=== PATIENT | male | born 1950 | race Caucasian/White ===

== ENCOUNTER → 2020-07-05 15:13 | Outpatient (CLI) | payer OTHER, SELFPAY ==
[2020-07-05 15:53] LABS: International Normalized Ratio 1.7; Prothrombin Time (Protime)PT. 19.8 SECONDS (11.7-14.9)
== END ==
PROVIDERS: Referring Provider Student in an Organized Health Care Education/Training Program; Visit Provider Student in an Organized Health Care Education/Training Program
DX: I26.99 Other pulmonary embolism without acute cor pulmonale (principal)
CPT/HCPCS: 85610

== ENCOUNTER 2020-08-24 06:15 | Emergency (ER) | payer OTHER, SELFPAY ==
[2020-08-24 06:16] VITALS: BP 165/85; PULSE 98; RESP 18; TEMP 36.6; O2SAT 98; BMI 39.1
--- NOTE | 2020-08-24 06:20 | RAD_ITS ---
HISTORY: FALL ANTERIOR BRUISING TO LEFT KNEE ADDITIONAL HISTORY: None provided. EXAMINATION/TECHNIQUE: XR Knee Complete 4 Views or More Left Number of images including paperwork: 4 COMPARISON: None FINDINGS: BONES: No acute fracture. JOINTS: No subluxation. Moderate medial compartment degenerative changes. Joint bodies. SOFT TISSUES: No distinct foreign body. Soft tissue swelling anteriorly. Vascular calcifications. RAD/Knee 4 or More Views IMPRESSION: Degenerative changes without acute osseous abnormality. Anterior knee soft tissue swelling. at 0730 Reported and signed by: Irina Ritchie MD Electronically Signed: Irina Ritchie MD at 7:30 EDT Tel , Service support ,
--- NOTE | 2020-08-24 06:20 | CT_ITS ---
HISTORY: FALL ADDITIONAL HISTORY: None provided. COMPARISON: None EXAMINATION/TECHNIQUE: CT Head or Brain W/O Contrast Injection. Axial, coronal and sagittal images. Number of images including paperwork: 262. A radiation dose optimization technique was used for this scan. FINDINGS: BRAIN: No acute hemorrhage or mass. No definite acute infarct; MRI more sensitive. White matter hypodensity is nonspecific but most commonly seen with chronic ischemic changes. VENTRICULAR SYSTEM: No hydrocephalus. PARANASAL SINUSES AND MASTOIDS: No air-fluid level in the imaged extent. Mild mucosal thickening. Mucous retention cyst versus polyp partially visualized in the left maxillary sinus. ORBITS: Unremarkable imaged extent. SKELETON AND SOFT TISSUES: Calvarium intact. Right periorbital hematoma. ASPECTS score: Not applicable. CT/Brain/Head without Contrast IMPRESSION: No acute intracranial abnormality. Chronic ischemic changes. Individualized dose optimization techniques were used for this CT. at 0703 Reported and signed by: Irina Ritchie MD Electronically Signed: Irina Rithcie MD at 7:03 EDT Tel , Service support ,
--- NOTE | 2020-08-24 06:20 | CT_ITS ---
HISTORY: FALL ADDITIONAL HISTORY: None provided COMPARISON: None TECHNIQUE: Noncontrast CT images of the cervical spine. 2D images were reviewed to aid in assessment of the cervical spine. A radiation dose optimization technique was used for this scan. Number of images including paperwork: 448 FINDINGS: BONES: No acute fracture. No suspicious bone lesion. VERTEBRAL ALIGNMENT: No traumatic subluxation. Loss of normal cervical lordosis. DISCS AND JOINTS: Moderate to severe discogenic degenerative changes at C5-6 and C6-7. Mild discogenic degenerative changes elsewhere. Facet arthropathy. SPINAL CANAL AND FORAMINA: No critical canal stenosis. SOFT TISSUES: No prevertebral soft tissue swelling. No pathologic-appearing cervical adenopathy. LUNG APICES: Unremarkable. PARANASAL SINUSES: Unremarkable imaged portions if any. CT/Spine Cervical without Contras IMPRESSION: 1. No acute osseous abnormality. 2. Loss of normal cervical lordosis may be related to positioning or muscle spasm. 3. Cervical spondylosis. Individualized dose optimization techniques were used for this CT. at 0701 Reported and signed by: Irina Ritchie MD Electronically Signed: Irina Ritchie MD at 7:01 EDT Tel , Service support ,
--- NOTE | 2020-08-24 06:20 | RAD_ITS ---
HISTORY: FALL MID ANTERIOR RIGHT RIB PAIN ADDITIONAL HISTORY: None provided. COMPARISON: EXAMINATION/TECHNIQUE: XR Ribs Unilateral W/ PA Chest Min 3 Views Right FINDINGS: No acute fracture. No consolidation, pleural effusion or pneumothorax. Degenerative changes. IVC filter. Acute rib fractures can be difficult to visualize radiographically. Follow-up as clinically warranted. RAD/Ribs Uni Min 3V w/PA Chest IMPRESSION: No acute rib fracture detected. at 0732 Reported and signed by: Irina Ritchie MD Electronically Signed: Irina Ritchie MD at 7:32 EDT Tel , Service support ,
--- NOTE | 2020-08-24 06:20 | CT_ITS ---
HISTORY: FALL TECHNIQUE: CT images of the facial bones were obtained without IV contrast. 2D images were reviewed to aid in assessment of the facial bones. A radiation dose optimization technique was used for this scan. COMPARISON: None FINDINGS: Number of images including paperwork: 453 BONES: No displaced facial bone fracture. No suspicious bone lesion. VISUALIZED PARANASAL SINUSES: No air fluid level. Mucosal thickening noted. Mucous retention cyst versus polyp left maxillary sinus. VISUALIZED MASTOID AIR CELLS: Clear. DENTITION: No acute findings. ORBITAL CONTENTS: Unremarkable. SOFT TISSUES: Right periorbital hematoma. CT/Sinus/Facial Bone IMPRESSION: No acute facial fracture. Right periorbital hematoma. Individualized dose optimization techniques were used for this CT. at 0705 Reported and signed by: Irina Ritchie MD Electronically Signed: Irina Ritchie MD at 7:04 EDT Tel , Service support ,
[2020-08-24 06:39] LABS: Prothrombin Time (Protime)PT. 22.1 SECONDS (11.7-14.9)
--- NOTE | 2020-08-24 07:18 | ED.DCSUM_ITS ---
History of Present Illness Narrative: Patient presenting for evaluation secondary to a fall. Patient is on Coumadin secondary to a history of A. fib. Patient states that he was trying to escape the brain, and had a slip and fall tonight. Patient does report that he struck his head and his face, as well as his left knee. Patient denies any loss of consciousness. Patient has difficulty seeing out of his right eye because it is basically swollen shut, but no blurry vision. No numbness or weakness. No confusion or nausea or vomiting. Patient is able to bear weight on his left leg, but states that he has a significant amount of swelling that is causing him some difficulty with bending his knee. Pain is mild to moderate worse palpat ion. Review of systems otherwise negative. <Shaun Zamora - Last Filed: 08/24/20 07:18> <William Steen - Last Filed: 08/24/20 10:00> Chief Complaint: Fall Past Medical History Prior records reviewed: Yes Past Medical History: - - Diabetes, hyperlipidemia, atrial fibrillation Smoking Status: Never smoker Alcohol: None Drugs: None <Shaun Zamora - Last Filed: 08/24/20 07:18> <William Steen - Last Filed: 08/24/20 10:00> - Allergies and Home Meds Allergies/Adverse Reactions: Allergies bee venom protein (honey bee) Allergy (Verified 08/24/20 06:23) Swelling Primary Care Physician: Margarita Snyder,Out of [NON-STAFF] - Review of Systems All systems negative except as indicated General: Denies: Chills, Fever, Sweats Eyes: Reports: Visual changes - right ENT: Denies: Rhinorrhea, Sore throat Cardiovascular: Denies: Chest pain, Palpitations Respiratory: Denies: Dyspnea, Cough, Dyspnea on exertion Gastrointestinal: Denies: Abdominal pain, Nausea, Vomiting, Diarrhea, Melena, Hematochezia Genitourinary: Denies: Dysuria, Hematuria, Frequency Musculoskeletal: Reports: Swelling, Extremity Pain Skin: Denies: Rash, Wounds Neurological: Reports: Headache <Shaun Zamora - Last Filed: 08/24/20 07:18> Physical Exam Vital Signs/Narrative: Vital Signs Temp Pulse Resp BP Pulse Ox 08/24/20 06:16 97.8 F 98 18 165/85 H 98 Inital Vital Signs reviewed: Yes General: Well nourished, Well developed, - - Airways patent, breath sounds equal bilateral, 2+ radial pulses bilaterally symmetric. GCS 15 15 Head: Normocephalic, - - Right periorbital hematoma is noted. No evidence of depressed skull fracture. Eyes: Perrl, EOMI, - - No evidence of hyphema, no evidence of entrapment Neck: Nontender, Full ROM Cardiovascular: Regular rate, Irregular, - - 2+ radial pulses. Negative for: Murmur Respiratory: No distress, Chest tenderness - Right rib tenderness to palpation, no evidence of crepitus, no evidence of flail chest, normal chest excursion Abdomen: Soft, Nontender, Nondistended, Normal bowel sounds Extremeties: Extremities are atraumatic except for examination of the patient's left lower extremity. There is evidence of ecchymosis and swelling of the left knee. No crepitus with range of motion, there is anterior joint line tenderness. Limited range of motion secondary to swelling and mildly secondary to pain. Normal distal sensation and pulses. Skin: Normal color, No rash Neurological: Alert, Oriented x3, Cranial nerves II-XII grossly intact, Normal Strength, Normal Sensation Psychological: Normal affect <Shaun Zamora - Last Filed: 08/24/20 07:18> Vital Signs/Narrative: Vital Signs Temp Pulse Resp BP Pulse Ox 08/24/20 06:16 97.8 F 98 18 165/85 H 98 <William Steen - Last Filed: 08/24/20 10:00> Diagnostic/Tx/Re-eval - Medical Decision Making Patient presented secondary to a fall. INR was found to be 2. CT imaging of the brain maxillary facial area and C-spine were ordered as were x-rays of the chest and knee. These are pending at this time. Patient be signed out to the oncoming physician for follow-up on imaging and disposition. <Shaun Zamora - Last Filed: 08/24/20 07:18> Impressions Brain CT 08/24/20 06:20 IMPRESSION: No acute intracranial abnormality. Chronic ischemic changes. Individualized dose optimization techniques were used for this CT. at 0703 Reported and signed by: Irina Ritchie MD Electronically Signed: Irina Ritchie MD at 7:03 EDT Tel , Service support , Cervical Spine CT 08/24/20 06:20 IMPRESSION: 1. No acute osseous abnormality. 2. Loss of normal cervical lordosis may be related to positioning or muscle spasm. 3. Cervical spondylosis. Individualized dose optimization techniques were used for this CT. at 0701 Reported and signed by: Irina Ritchie MD Electronically Signed: Irina Ritchie MD at 7:01 EDT Tel , Service support , Facial/Sinus 08/24/20 06:20 IMPRESSION: No acute facial fracture. Right periorbital hematoma. Individualized dose optimization techniques were used for this CT. at 0705 Reported and signed by: Irina Ritchie MD Electronically Signed: Irina Ritchie MD at 7:04 EDT Tel , Service support , 08/24/20 06:20 Brain/Head without Contrast [CT] Stat Knee 4 or More Views [RAD] Stat Ribs Uni Min 3V w/PA Chest [RAD] Stat Sinus/Facial Bone [CT] Stat Spine Cervical without Contras [CT] Stat Laboratory Results 08/24/20 06:25 PT 22.1 H INR 2.0 - Medical Decision Making Patient checked out to me and doing well. He is able to ambulate. CTs, x-ray series of the right ribs, and x-ray series of the left knee are all negative for anything acute. Patient is reassured advised to ice the affected areas, he is asking for a work note, and discharged home with instruction for supportive care. He is neurologically intact, CT was negative for bleed, his INR is 2.0, I do not think he needs to be admitted given his coagulopathy and head injury. <William Steen - Last Filed: 08/24/20 10:00> ED Disposition <Shaun Zamora - Last Filed: 08/24/20 07:18> <William Steen - Last Filed: 08/24/20 10:00> - Plan for ED Patient: Disposition: Home or Assisted Living Diagnosis: Closed head injury without loss of consciousness, Facial contusion, Contusion of left knee, Contusion of right chest wall Instructions: ED Mechanical Fall, ED Head Injury Adult Referrals: [facility] Doctor,Out of [NON-STAFF] - As Needed Shaun Meade, [STAFF PHYSICIAN] - 1-2 Weeks (if still having problems with knee)
[2020-08-24 10:49] VITALS: BP 110/48; RESP 17
== END 2020-08-24 11:01 | disposition home or self-care (01) ==
PROVIDERS: Emergency Provider Emergency Medicine; PCP Student in an Organized Health Care Education/Training Program
DX: S09.90XA Unspecified injury of head, initial encounter (principal); S00.83XA Contusion of other part of head, initial encounter; S80.02XA Contusion of left knee, initial encounter; S20.211A Contusion of right front wall of thorax, initial encounter; E11.9 Type 2 diabetes mellitus without complications; W19.XXXA Unspecified fall, initial encounter; Z79.84 Long term (current) use of oral hypoglycemic drugs
CPT/HCPCS: 36415; 70450; 70486; 71101; 72125; 73564; 85610; 99281

== ENCOUNTER 2022-07-16 11:09 | Emergency (ER) | payer OTHER, SELFPAY ==
[2022-07-16 11:10] VITALS: BP 143/104; PULSE 85; RESP 17; TEMP 36.6; O2SAT 98; BMI 34.4
--- NOTE | 2022-07-16 11:20 | CT_ITS ---
STUDY: CT ABDOMEN AND PELVIS WITH CONTRAST REASON FOR EXAM: Male, 72 years old. RLQ Pain R lower quadrant abd pain for 3 weeks, worsening last few days. denies N/V,D RADIATION DOSAGE (If Supplied By Facility): CTDIvol = ( 21.86 ) mGy, DLP = ( 1678.35 ) mGycm TECHNIQUE: Transaxial images were obtained from the dome of the diaphragm to the symphysis pubis without oral contrast. IV 100mL Isovue-370 was administered. Sagittal and coronal images were reconstructed. Individualized dose optimization techniques were used for this CT. COMPARISON: None. FINDINGS: The visualized lung bases are unremarkable. Normal liver. No intrahepatic biliary duct dilatation or liver mass. There are multiple gallstones. Normal spleen. Normal pancreas. Normal bilateral adrenal glands. There is mild cortical atrophy of both kidneys as well as multiple small cysts of the kidneys that do not require any additional imaging. No hydronephrosis or renal masses. No visualized radiopaque stones. Normal visualized stomach. Normal small intestine. There is significant diverticulosis of the descending and rectosigmoid colon. No active inflammation of the diverticula is seen on this study. The remaining colonic loops are within normal limits. No colonic mass is seen. No inflammatory stranding is present around the right colon or bowel loops. The appendix is normal. No bowel dilatation or obstruction. No free air or free fluid. There is diffuse atherosclerotic calcification of the abdominal aorta, without a demonstrated aneurysm. There is an IVC filter in place. Normal retroperitoneum. Normal urinary bladder. Normal abdominal wall. Right hip prosthesis noted. Small fat-containing bilateral inguinal hernias are present. There are diffuse degenerative changes of the visualized lumbar spine. CT/Abdomen/Pelvis W IV Cont ONLY IMPRESSION: 1. There is significant diverticulosis of the descending and rectosigmoid colon. No active inflammation of the diverticula is seen on this study. The remaining colonic loops are within normal limits. No colonic mass is seen. No inflammatory stranding is present around the right colon or bowel loops. 2. The appendix is normal. 3. Gallstones Electronically Signed: Dajuan Haddad MD at 12:33 EDT ,
[2022-07-16 11:36] LABS: Absolute Lymphocyte Count 1.47 X10^3/uL (0.83-4.51); Absolute Neutrophil Count 4.1 X10^3/uL (2.0-7.7); Basophil# 0.04 X10^3/uL; Basophil% 0.6 % (0-1); Eosinophil# 0.22 X10^3/uL; Eosinophils% 3.5 % (0-5); Hematocrit 44.6 % (40-54); Hemoglobin 14.4 g/dL (13.0-16.5); Lymphocyte # 1.47 X10^3/ul (0.83-4.51); Lymphocyte % 23.3 % (19-41); Mean Corp Hgb Conc 32.3 g/dL (32-36); Mean Corpuscular Volume 89.9 fL (80-94); Mean Platelet Vol. 9.8 fl (6.2-12.0); Monocyte# 0.41 X10^3/uL; Monocyte% 6.5 % (0-10); NRBC Flagged by Analyzer 0 % (0-5); Neutrophil # 4.13 X10^3/uL (2.7-7.7); Neutrophil % 65.5 % (47-70); Platelet Count 220 K/mm3 (150-450); RBC Distribution Width CV 13.1 % (11.6-14.6); RBC Distribution Width SD 42.8 fl (35.1-43.9); Red Blood Count 4.96 M/mm3 (4.6-6.2); White Blood Count 6.3 K/mm3 (4.4-11.0)
[2022-07-16 11:52] LABS: ALB/GLOB Ratio 1.1 RATIO (0.9-2.4); AST(SGOT) 8 U/L (15-37); Alanine Aminotransfer ALT/SGPT 23 U/L (16-61); Albumin, Serum 3.3 g/dL (3.2-5.0); Alkaline Phosphatase 74 U/L (45-117); Anion Gap 4 (5-15); BUN 13 mg/dL (7-18); BUN/Creat Ratio 14.8 RATIO (10-20); Calcium,Total 8.9 mg/dL (8.5-10.1); Chloride 110 mmol/L (98-107); Creatinine, Serum 0.88 mg/dL (0.70-1.30); EST Glomerular Filtration Rate 91 mL/min (>60); Est Glom Filt Rate - Afr Amer 110 mL/min (>60); Estimated Creatinine Clearance 78.11 ml/min; Glucose 198 mg/dL (74-106); Potassium 4.4 mmol/L (3.5-5.1); Protein, Total 6.3 g/dL (6.4-8.2); Sodium Level 141 mmol/L (136-145)
--- NOTE | 2022-07-16 12:05 | EX.ED.DYSGE1 ---
HPI History of Present Illness Chief Complaint: Abd Pain Informant: patient Narrative Narrative: 72-year-old male presenting to the emergency room with 2 weeks of right lower quadrant abdominal pain. He states that symptoms are not radiating. He states that when he gets up and moves it hurts worse but as he continues to move it eventually gets better. Denies any fever, vomiting nausea or diarrhea, urinary symptoms. No rashes. No trauma or strenuous lifting. He is on the Coumadin. PFSH PFS Medical History Diabetes mellitus Hyperlipidemia Home Medications glimepiride 4 mg tablet 4 mg PO DAILY 08/24/20 [History Last Taken Unknown] metformin 500 mg tablet,extended release 24 hr 500 mg PO DAILY 08/24/20 [History Last Taken Unknown] pravastatin 20 mg tablet 10 mg PO QHS 08/24/20 [History Last Taken Unknown] sitagliptin 100 mg tablet 100 mg PO DAILY 08/24/20 [History Last Taken Unknown] warfarin 6 mg tablet 12 mg PO DAILY 08/24/20 [History Last Taken Unknown] Allergy/AdvReac Type Severity Reaction Status Date / Time bee venom protein (honey bee) Allergy Swelling Verified 07/16/22 11:14 Social History (Updated 07/16/22 @ 12:[address] Neville Vyas DO) current gender identity: male Smoking Status: Never smoker ROS ROS ED Constitutional Constitutional ED: Denies chills, fever(s) or weight loss Eyes Eyes: Denies change in vision or diplopia ENT ENT ED: Denies ear pain, rhinorrhea or sore throat Cardiovascular Cardiovascular: Denies chest pain, orthopnea, palpitations or racing heartbeat Respiratory/Chest Respiratory/Chest: Denies cough, dyspnea or orthopnea Gastrointestinal Gastrointestinal: Reports abdominal pain and other; Denies diarrhea, nausea or vomiting Genitourinary Genitourinary ED: Denies dysuria, hematuria or urinary frequency Musculoskeletal Musculoskeletal: Denies arthralgias or myalgias Integumentary Denies abscess or rash Neurologic Neurologic: Denies headache(s) or weakness Psychiatric Psychiatric: Denies anxiety, depression, suicidal ideation or suicidal thoughts Endocrine Endocrinology: Denies polydipsia, polyphagia or polyuria Allergic/Immunologic Allergic/Immunologic ED: Denies mouth swelling, tongue swelling or urticaria EXAM Physical Exam Const Vital Signs: 07/16/22 11:10 Temperature 97.9 F Temperature Source Temporal Pulse Rate 85 Respiratory Rate 17 Blood Pressure 143/104 H Blood Pressure Mean 117 Pulse Ox 98 Oxygen Delivery Method Room Air Positive well nourished, well developed and obese General Appearance ED: well developed Nutritional Appearance: obese HEENT Reports normocephalic, head/scalp atraumatic and moist mucous membranes Eyes PERRL and EOMs intact bilaterally Neck no lymphadenopathy, supple and no JVD Resp normal respiratory effort and clear to auscultation bilaterally Cardio regular rate, regular rhythm and no murmurs GI GI Narrative: Patient has very focal tenderness to palpation more just superior to the inguinal ligament. Located in a skin fold. I do not appreciate rash. No guarding or rebound noted. Palpation: soft and tender; Negative for guarding or rebound tenderness present Back/Spine no CVA tenderness and normal ROM Extremity normal to inspection General Extremety ED: Negative for edema General Extremity: Negative for edema Neuro oriented x3 and CN's II-XII intact bilaterally Sensorium / Orientation: alert Motor Exam: strength 5/5 throughout Psych mental status grossly normal Mood & Affect: Negative for depressed or tearful Skin no rashes or lesions noted and no wounds MDM MDM MDM Narrative Medical decision making narrative: White count of 6.3. Glucose of 198 creatinine is normal. His INR is subtherapeutic at 1.5. Advised him to double his Coumadin dose tonight and tomorrow and have it rechecked later this week. CT then pelvis demonstrated gallstones but of symptoms are not consistent with gallbladder disease. The appendix is visualized and normal. I would note this could be in a tendinitis from the hip flexor I do not see anything emergent that would require hospitalization. Patient to follow-up with his doctor if not improving return if worsening or concerns Lab Data Attestation: I reviewed the patient's lab results. Labs: Laboratory Results - last 24 hr 07/16/22 07/16/22 07/16/22 11:25 11:25 12:25 WBC 6.3 RBC 4.96 Hgb 14.4 Hct 44.6 MCV 89.9 MCH 29.0 MCHC 32.3 RDW Std Deviation 42.8 RDW Coeff of Arnaud 13.1 Plt Count 220 MPV 9.8 Immature Gran % (Auto) 0.600 Neut % (Auto) 65.5 Lymph % (Auto) 23.3 Butts % (Auto) 6.5 Eos % (Auto) 3.5 Baso % (Auto) 0.6 Absolute Neuts (auto) 4.1 Absolute Lymphs (auto) 1.47 Nucleated RBC % 0 PT 18.1 H INR 1.5 Sodium 141 Potassium 4.4 Chloride 110 H Carbon Dioxide 27.0 Anion Gap 4 L BUN 13 Creatinine 0.88 Estim Creat Clear Calc 78.11 Est GFR (MDRD) Af Amer 110 Est GFR (MDRD) Non-Af 91 BUN/Creatinine Ratio 14.8 Glucose 198 H Calcium 8.9 Total Bilirubin 0.50 AST 8 L ALT 23 Alkaline Phosphatase 74 Total Protein 6.3 L Albumin 3.3 Globulin 3.0 Albumin/Globulin Ratio 1.1 Urine Color Urine Clarity Urine pH Ur Specific [place] Urine Protein Urine Glucose (UA) Urine Ketones Urine Occult Blood Urine Nitrite Urine Bilirubin Urine Urobilinogen Ur Leukocyte Esterase Urine RBC Urine WBC Ur Squamous Epith Cells Urine Bacteria Urine Mucus 07/16/22 13:05 WBC RBC Hgb Hct MCV MCH MCHC RDW Std Deviation RDW Coeff of Arnaud Plt Count MPV Immature Gran % (Auto) Neut % (Auto) Lymph % (Auto) Butts % (Auto) Eos % (Auto) Baso % (Auto) Absolute Neuts (auto) Absolute Lymphs (auto) Nucleated RBC % PT INR Sodium Potassium Chloride Carbon Dioxide Anion Gap BUN Creatinine Estim Creat Clear Calc Est GFR (MDRD) Af Amer Est GFR (MDRD) Non-Af BUN/Creatinine Ratio Glucose Calcium Total Bilirubin AST ALT Alkaline Phosphatase Total Protein Albumin Globulin Albumin/Globulin Ratio Urine Color Yellow Urine Clarity Clear Urine pH 6.5 Ur Specific [place] 1.010 Urine Protein Negative Urine Glucose (UA) Normal Urine Ketones Negative Urine Occult Blood Negative Urine Nitrite Negative Urine Bilirubin Negative Urine Urobilinogen Normal Ur Leukocyte Esterase Negative Urine RBC 0 SEEN Urine WBC 0 SEEN Ur Squamous Epith Cells 0 SEEN Urine Bacteria 0 SEEN Urine Mucus 0 SEEN Radiography Diagnostic Testing: Clinical Impression(s) from Imaging Studies Abdomen/Pelvis CT 07/16/22 11:20 IMPRESSION: 1. There is significant diverticulosis of the descending and rectosigmoid colon. No active inflammation of the diverticula is seen on this study. The remaining colonic loops are within normal limits. No colonic mass is seen. No inflammatory stranding is present around the right colon or bowel loops. 2. The appendix is normal. 3. Gallstones Electronically Signed: Dajuan Haddad MD at 12:33 EDT , Discharge Plan Triage Chief Complaint: Abd Pain ED Provider: Neville Vyas Dx/Rx/DC Orders Clinical Impression: Abdominal pain Prescriptions: No Action warfarin 6 MG tablet 12 mg PO DAILY glimepiride 4 MG tablet 4 mg PO DAILY pravastatin 20 MG tablet 10 mg PO QHS metformin 500 MG tablet extended release 24 hr 500 mg PO DAILY sitagliptin 100 MG tablet 100 mg PO DAILY Primary Care Provider: Jovanny Dey Referrals: Jovanny Dey DO [Primary Care Provider] -
[2022-07-16 12:48] LABS: International Normalized Ratio 1.5; Prothrombin Time (Protime)PT. 18.1 SECONDS (11.7-14.9)
[2022-07-16 13:12] LABS: Bacteria 0 SEEN /hpf (None Seen); Mucous, Urine 0 SEEN /hpf (<or=2+); Red Blood Cells-Urine 0 SEEN /hpf (0-5); Squamous Epithelial Cells - UA 0 SEEN /hpf (0-5); White Blood Cells 0 SEEN /hpf (0-5)
[2022-07-16 13:16] LABS: Color, Urine Yellow (Yellow); Glucose, Dipstick Normal (Normal); Ketone-Dipstick Negative (Negative); Leukocyte Esterase-Dipstick Negative /ul (Negative); Nitrite-Dipstick Negative (Negative); Occult Blood-Urine Negative /ul (Negative); Protein-Dipstick Negative (Negative); Urine Bilirubin Dipstick Negative (Negative); Urine Clarity Clear (Clear); Urine Urobilinogen Normal (Normal); Urine pH 6.5 (5.0 - 8.0)
== END 2022-07-16 13:41 | disposition home or self-care (01) ==
PROVIDERS: Emergency Provider Emergency Medicine; PCP Student in an Organized Health Care Education/Training Program; Visit Provider Emergency Medicine
DX: R10.31 Right lower quadrant pain (principal); E11.9 Type 2 diabetes mellitus without complications; E78.5 Hyperlipidemia, unspecified; E66.9 Obesity, unspecified; Z79.01 Long term (current) use of anticoagulants; Z79.84 Long term (current) use of oral hypoglycemic drugs; Z79.899 Other long term (current) drug therapy
CPT/HCPCS: 74177; 80053; 81001; 85025; 85610; 99283; Q9967; A4216

== ENCOUNTER 2024-04-02 08:28 | Emergency (ER) | payer OTHER, SELFPAY ==
[2024-04-02 08:30] VITALS: BP 156/77; PULSE 87; PULSE 88; RESP 12; TEMP 36.1; O2SAT 97; BMI 34.7
--- NOTE | 2024-04-02 08:43 | EX.ED.DYSGE1 ---
HPI History of Present Illness Chief Complaint: Other, Pain/Inj Informant: patient Narrative Narrative: 73-year-old diabetic male on Coumadin for pulmonary embolism presenting to the emergency room with left great toe pain. Patient states he has had chronic toenail fungus and recently tried to did my ingrown toenail out. For about a week now he has had increasing pain redness of the left great toe. Patient does not see a risk adjustment specialist. He states he checks his Coumadin level at home about every other day. Patient notes sensitivity to light touch so has been keeping his foot outside of the sheets at night. No reported fever. [facility] Medical History Hyperlipidemia Diabetes mellitus Home Medications ?Medication ?Instructions ?Recorded ?Last Taken ?Type glimepiride 4 mg tablet 4 mg PO DAILY 08/24/20 Unknown History metformin 500 mg tablet,extended 500 mg PO DAILY 08/24/20 Unknown History release 24 hr pravastatin 20 mg tablet 10 mg PO QHS 08/24/20 Unknown History sitagliptin phosphate 100 mg tablet 100 mg PO DAILY 08/24/20 Unknown History warfarin 6 mg tablet 12 mg PO DAILY 08/24/20 Unknown History Allergy/AdvReac Type Severity Reaction Status Date / Time bee venom protein (honey bee) Allergy Swelling Verified 04/02/24 08:29 Social History Smoking Status: Never smoker [facility] ED Constitutional Constitutional ED: Denies chills, fever(s) or weight loss Eyes Eyes: Denies change in vision or diplopia ENT ENT ED: Denies ear pain, rhinorrhea or sore throat Cardiovascular Cardiovascular: Denies chest pain, orthopnea, palpitations or racing heartbeat Respiratory/Chest Respiratory/Chest: Denies cough, dyspnea or orthopnea Gastrointestinal Gastrointestinal: Denies abdominal pain, diarrhea, nausea or vomiting Genitourinary Genitourinary ED: Denies dysuria, hematuria or urinary frequency Musculoskeletal Musculoskeletal: Reports other Details: See history of present illness ; Denies arthralgias or myalgias Integumentary Denies abscess or rash Neurologic Neurologic: Denies headache(s) or weakness Psychiatric Psychiatric: Denies anxiety, depression, suicidal ideation or suicidal thoughts Endocrine Endocrinology: Denies polydipsia, polyphagia or polyuria Allergic/Immunologic Allergic/Immunologic ED: Denies mouth swelling, tongue swelling or urticaria EXAM Physical Exam Const Vital Signs: 04/02/24 08:30 04/02/24 08:30 Temperature 96.9 F L Temperature Source Temporal Pulse Rate 88 87 Respiratory Rate 12 12 Blood Pressure 156/77 H 156/77 H Blood Pressure Mean 103 103 Pulse Ox 97 97 Oxygen Delivery Method Room Air Room Air Positive well nourished and well developed General Appearance ED: well developed HEENT Reports normocephalic, head/scalp atraumatic and moist mucous membranes Eyes PERRL and EOMs intact bilaterally Neck no lymphadenopathy, supple and no JVD Resp normal respiratory effort and clear to auscultation bilaterally Cardio regular rate, regular rhythm and no murmurs GI normal to inspection, nondistended, normoactive bowel sounds and non-tender Palpation: soft Back/Spine no CVA tenderness and normal ROM Extremity Extremity Narrative: Left great toe demonstrates onychomycosis. The medial aspect of the toe is erythematous and mildly swollen. There appears to be tissue overgrown the nail. There is no purulence drainage. No obvious paronychia. The fat pad of the toe is soft and nontender. No lymphangitic streaking. General Extremety ED: Negative for edema General Extremity: Negative for edema Neuro oriented x3 and CN's II-XII intact bilaterally Sensorium / Orientation: alert Motor Exam: strength 5/5 throughout Psych mental status grossly normal Mood & Affect: Negative for depressed or tearful Skin no rashes or lesions noted and no wounds MDM MDM MDM Narrative Medical decision making narrative: 73-year-old male with infected left great toe ingrown nail. Patient is on Coumadin. He understands with antibiotics he needs to check this regularly which she can check at home. He notes understanding of this. He understands that I am going to be referring him to podiatry for definitive care. He understands return instructions. History & Record Review Discussion w/independent historian: Patient Discharge Plan Triage Chief Complaint: Other, Pain/Inj ED Provider: Neville Vyas Dx/Rx/DC Orders Prescriptions: No Action warfarin 6 MG tablet 12 mg PO DAILY glimepiride 4 MG tablet 4 mg PO DAILY pravastatin 20 MG tablet 10 mg PO QHS metformin 500 MG tablet extended release 24 hr 500 mg PO DAILY sitagliptin phosphate 100 MG tablet 100 mg PO DAILY Primary Care Provider: Jovanny Dey Referrals: Jovanny Dey, [Primary Care Provider] - Print Language: [place]
== END 2024-04-02 09:15 | disposition home or self-care (01) ==
PROVIDERS: Emergency Provider Emergency Medicine; PCP Student in an Organized Health Care Education/Training Program; Visit Provider Emergency Medicine
DX: L60.0 Ingrowing nail (principal); E11.9 Type 2 diabetes mellitus without complications; Z79.01 Long term (current) use of anticoagulants; Z86.711 Personal history of pulmonary embolism
CPT/HCPCS: 99282

== ENCOUNTER → 2024-04-25 | Outpatient (CLI) | payer OTHER, SELFPAY ==
--- NOTE | 2024-04-25 13:53 | VDLE_ITS ---
Reason For Study: PVD RIGHT LEFT GSV is normal. GSV is normal. CFV is compressible, spontaneous, phasic, CFV is compressible, spontaneous, phasic, competent and demonstrates normal competent, and demonstrates normal augmentation. augmentation. FV is compressible, spontaneous, phasic, FV is compressible, phasic, and INCOMPETENT competent and demonstrates normal for greater than 1.0 second. augmentation. POP V is compressible, phasic, and POP V is compressible, phasic, and INCOMPETENT for greater than 1.0 second. INCOMPETENT for greater than 1.0 second. T/P Trunk is compressible. T/P Trunk is compressible. PTV is compressible. PTV is compressible. LT PerV is compressible. RT PerV is compressible. Procedure This is a venous duplex using B-mode, color flow and spectral Doppler. Exam performed in department. The exam was diagnostic. VL/Venous Duplex US - Joshua Extrem Interpretation Summary Deep veins of the bilateral lower extremities are patent and compressible segme ntally. There is no evidence of bilateral lower extremity deep vein thrombosis. The bilateral great saphenous veins appear patent and compressible segmentally. Positive for reflux in the right popliteal vein Positive for reflux in the left femoral vein, popliteal vein Ordering Physician: Balta Milton Referring Physician: Jovanny Dey Performed By: Eric Chan RVT
--- NOTE | 2024-04-25 13:55 | ART_ITS ---
Reason For Study: PVD Left Segmental Pressures Left brachial= 144mmHg. Left posterior tibial artery = >254mmHg. Left dorsalis pedis artery = >254mmHg. Left digit = 129 mmHg. The left posterior tibial artery waveforms are triphasic. The left dorsalis pedis waveforms are triphasic. Right Segmental Pressures Right brachial= 140mmHg. Right posterior tibial artery = >254mmHg. Right dorsalis pedis artery = >254mmHg. Right digit = 145 mmHg. The right posterior tibial artery waveforms are triphasic. The right dorsalis pedis waveforms are triphasic. Indices The right ankle brachial index by the posterior tibial artery is N/C. The right ankle brachial index by the dorsalis pedis is N/C. The right digital-brachial index is 1.01. The left ankle brachial index by the posterior tibial artery is N/C. The left ankle brachial index by the dorsalis pedis is N/C. The left digital-brachial index is 0.90. VL/Lower Ext Art Exam w/o Exercis Interpretation Summary Right JORGE not able to be ontained due to non-compressible vessels. TBI and Dopp ler/PVR waveforms of the right leg normal at rest. Left JORGE not able to be obtained due to non-compressible vessels. TBI and Doppl er/PVR waveforms of the left leg normal at rest. Ordering Physician: Boubacar Milton Referring Physician: BOUBACAR MILTON DPM Performed By: Eric Chan RVT
== END | disposition home or self-care (01) ==
PROVIDERS: PCP Student in an Organized Health Care Education/Training Program; Referring Provider Podiatrist Foot & Ankle Surgery; Visit Provider Podiatrist Foot & Ankle Surgery
DX: I73.89 Other specified peripheral vascular diseases (principal); M79.604 Pain in right leg; M79.605 Pain in left leg
CPT/HCPCS: 93923; 93970